=== PATIENT | female | born 1990 | race Caucasian/White ===

== ENCOUNTER → 2017-10-11 | Outpatient (CLI) | payer BC ==
[~2017-10-11] MED LIST: IMPLANON68 MG ID; PRENATAL1 TA1 PO; RELAFEN 50500 MG/TAB PO
== END ==
LOC: MC.RAD 14:40
DX: Z12.31 Encounter for screening mammogram for malignant neoplasm of breast (principal); Z80.3 Family history of malignant neoplasm of breast

== ENCOUNTER 2019-03-05 14:03 | Emergency (ER) | payer SELFPAY ==
[~2019-03-05] VITALS: Ht 157.5 cm; Wt 90.9 kg
[2019-03-05 14:18] VITALS: TEMP 98.1
[2019-03-05] MEDS ORDERED: TOPROL XL 25MG25 MG PO (14:31)
[2019-03-05] MEDS ORDERED: DYAZIDE 25 MG-31 CAP PO (14:32)
[2019-03-05 16:00] LABS: BASO # 0.1 (0.0-0.2); BASO % 0.5 % (0.0-2.0); EOS % 0.2 % (0-4.0); GRAN # 9.3 (1.4-6.5); GRAN % 73.9 % (42.2-75.2); HEMATOCRIT 42.7 % (37.0-47.0); HEMOGLOBIN 14.7 g/dl (12.5-16.0); LYMPH # 2.5 (1.2-3.4); MEAN CELL VOLUME 87 fl (80.0-100.0); MEAN CORPUSCULAR HEMOGLOBIN 30 pg (27.0-31.0); MEAN CORPUSCULAR HGB CONC 34 g/dl (33.0-37.0); MONO # 0.7 (0.1-0.6); MONO % 5.1 % (1.7-9.3); PLATELET COUNT 491 K/mm3 (130-400); RED BLOOD COUNT 4.93 M/mm3 (4.10-5.30); REDCELL DISTRIBUTION WIDTH-CV 12.9 % (11.5-14.5)
[2019-03-05 16:18] LABS: ALANINE AMINOTRANSFERASE 35 U/L (9-52); ALBUMIN 4.7 gm/dL (3.5-5.0); ALKALINE PHOSPHATASE 115 U/L (50-136); ANION GAP 13 mmol/L (7-16); AST,SGOT 46 U/L (15-37); BILIRUBIN,TOTAL 0.9 mg/dL (0.0-1.0); BLOOD UREA NITROGEN 16 mg/dL (7-17); C-REACTIVE PROTEIN 3.8 mg/dL (0.0-0.9); CALCIUM 9.9 mg/dL (8.4-10.2); CARBON DIOXIDE 26 mmol/L (22-30); CHLORIDE 100 mmol/L (98-107); CREATININE, serum 0.71 (0.52-1.25); GLUCOSE 95 mg/dL (74-106); POTASSIUM 3.2 mmol/L (3.4-5.0); SODIUM 139 mmol/L (137-145); TOTAL PROTEIN 8.9 gm/dL (6.4-8.2)
[2019-03-05 16:31] LABS: TROPONIN-I < 0.012 ng/mL (0.000-0.035)
[2019-03-05] MEDS ORDERED: VISTARIL 2525 MG/CAP PO (16:48)
[2019-03-05 17:23] VITALS: BP 126/90; PULSE 99
== END 2019-03-05 17:23 | disposition home or self-care (01) ==
LOC: COL.ER 14:03
PROVIDERS: Physician Assistant
DX: F41.9 Anxiety disorder, unspecified (principal)